=== PATIENT | female | born 1965 | race Caucasian/White ===

== ENCOUNTER 2017-12-26 18:30 | Emergency (ER) | payer OTHER ==
[~2017-12-26] VITALS: Ht 157.5 cm; Wt 59.0 kg
[~2017-12-26 18:30] MED LIST: ALBU90OI INH; ALBU90OI6 INH; ALPR.25; ALPR.5 PO; AMIT10 PO; AMIT25 PO; AMIT50 PO; ASPI81CH PO; Abilify2 MG; Aspirin EC81 MG PO; BUDE10.22 INH; CHOL10002 PO; CITA20 PO; CLON.1 PO; Clonidine HCl0.2 MG PO; DILT30 PO; FLUO10 PO; Flovent 220 Ora12 GM INH; HYDACE5 PO; HYDACE5325 PO; IBUHYD PO; LORA1 PO; LOSA25 PO; METCAR500 PO; MULTIVITAMIN W PO; Maxalt10 MG; Maxalt10 MG PO; NAPR500 PO; NIAC500 PO; Naprosyn500 MG PO; Omeprazole20 M1; Percocet 5-3251 EACH PO; Prilosec Otc20 MG; Prozac20 MG; Robaxin500 MG PO; TIZANIDINE HCL4 MG PO; TRAM50 PO; TRAZ100 PO; Ultram50 MG PO; VITAMIN D32000 UNIT PO; Voltaren100 GM TP
[2017-12-26] MEDS ORDERED: Percocet 5-3251 EACH PO (20:31)
[2017-12-26] MEDS ORDERED: FLUO10 PO (20:50)
== END 2017-12-26 20:50 | disposition home or self-care (01) ==
LOC: ER 18:30
DX: S61.412A Laceration without foreign body of left hand, initial encounter (principal); I10 Essential (primary) hypertension; F41.9 Anxiety disorder, unspecified; F32.9 Major depressive disorder, single episode, unspecified; F17.210 Nicotine dependence, cigarettes, uncomplicated; Z88.0 Allergy status to penicillin; Z88.5 Allergy status to narcotic agent; Z79.899 Other long term (current) drug therapy; W01.0XXA Fall on same level from slipping, tripping and stumbling without subsequent striking against object, initial encounter
CPT/HCPCS: 12004; 99282

== ENCOUNTER → 2019-03-29 | Outpatient (CLI) | payer OTHER ==
[2019-03-29 12:47] LABS: BASOPHILS ABSOLUTE AUTO 0.03 K/mm3 (0.00-0.23); BASOPHILS PERCENT AUTO 1 % (0-2); EOSINOPHILS ABSOLUTE AUTO 0.04 K/mm3 (0.00-0.68); EOSINOPHILS PERCENT AUTO 1 % (0-6); Hematocrit 40.7 % (33.0-51.0); Hemoglobin 13.4 g/dL (11.5-16.0); IMMATURE GRAN ABSOLUTE AUTO 0.02 K/mm3 (0.00-0.10); IMMATURE GRAN PERCENT AUTO 0 % (0-1); LYMPHOCYTES ABSOLUTE AUTO 1.49 K/mm3 (0.84-5.20); LYMPHOCYTES PERCENT AUTO 26 % (21-46); MONOCYTES ABSOLUTE AUTO 0.36 K/mm3 (0.16-1.47); MONOCYTES PERCENT AUTO 6 % (4-13); Mean Corpuscular HGB 30.5 pg (26.0-34.0); Mean Corpuscular HGB Conc 32.9 g/dL (31.5-36.5); Mean Corpuscular Volume 93 fL (80-100); Mean Platelet Volume 9.5 fL (9.1-12.4); NEUTROPHILS ABSOLUTE AUTO 3.75 K/mm3 (1.96-9.15); NEUTROPHILS PERCENT AUTO 66 % (41-73); Platelet Count 406 K/mm3 (150-400); RDW Coefficient Variation 13.4 % (11.7-14.2); RDW Standard Deviation 45.5 fL (35.1-46.3); Red Blood Cell Count 4.39 M/mm3 (3.80-5.20); White Blood Cell Count 5.69 K/mm3 (4.00-11.30)
[2019-03-29 12:56] LABS: Alanine Aminotransfer (ALT/SGP 12 U/L (12-78); Albumin/Globulin Ratio 0.9 (0.8-1.8); Alk Phos 127 U/L (40-126); Anion Gap 10 mmol/L (6-16); Aspartate Aminotrans (AST/SGOT 15 U/L (12-37); Bilirubin, Total 0.2 mg/dL (0.1-1.0); Blood Urea Nitrogen 8 mg/dL (8-24); Bun/Creatinine Ratio 9.5 (12.0-20.0); CO2, Blood 26 mmol/L (21-32); Chloride, Blood 102 mmol/L (98-108); Creatinine, Blood 0.84 mg/dL (0.40-1.00); Globulin, Blood 4.3 g/dL (2.2-4.0); Glomerular Filtration Rate >60 (60-); Glucose, Blood 92 mg/dL (70-99); Potassium, Blood 4.6 mmol/L (3.5-5.5); Sodium, Blood 138 mmol/L (136-145); Total Protein, Blood 8.3 g/dL (6.4-8.2)
== END | disposition home or self-care (01) ==
LOC: LAB SHORT 12:38 → LAB EV 12:38
PROVIDERS: Physician Assistant Medical
DX: K92.1 Melena (principal)
CPT/HCPCS: 80053; 85025

== ENCOUNTER 2020-02-19 07:58 | Day surgery (SDC) | payer OTHER ==
[~2020-02-19 07:58] MED LIST changes: +AMLO5 PO; +ATOR20 PO; +B-121000 MC7 PO; +FENO48 PO; +METO25ER; +METOPROLOL TA37.5 MG PO; -Maxalt10 MG; -Omeprazole20 M1; +Omeprazole20 M1 PO; -Prozac20 MG; +Prozac20 MG PO; +SYMBICORT 80-10.2 GM INH
--- NOTE | 2020-02-19 09:53 | NUR ---
DISCHARGE SUMMARY Patient up to Ambulate independently. Gait steady. Discharge instructions reviewed with patient. Patient verbalizes understanding. Copy given to patient to take home.IV DC'D.
== END 2020-02-19 22:55 | disposition home or self-care (01) ==
LOC: ORD 07:58 → CT 07:58 → ORD 08:30 → CT 09:00 → ORD 22:55
DX: I20.9 Angina pectoris, unspecified (principal); I12.9 Hypertensive chronic kidney disease with stage 1 through stage 4 chronic kidney disease, or unspecified chronic kidney disease; N18.9 Chronic kidney disease, unspecified; J43.9 Emphysema, unspecified; J98.11 Atelectasis; E78.5 Hyperlipidemia, unspecified; F17.210 Nicotine dependence, cigarettes, uncomplicated; F41.9 Anxiety disorder, unspecified; F32.9 Major depressive disorder, single episode, unspecified; Z79.899 Other long term (current) drug therapy; Z88.0 Allergy status to penicillin; Z88.5 Allergy status to narcotic agent; Z79.82 Long term (current) use of aspirin; R00.2 Palpitations; I70.1 Atherosclerosis of renal artery
CPT/HCPCS: 75574; Q9967

== ENCOUNTER → 2020-05-01 | Outpatient (CLI) | payer OTHER | END | disposition home or self-care (01) | LOC: LAB 17:08 → LAB SHORT 17:08 | DX: E55.9 Vitamin D deficiency, unspecified (principal); E04.2 Nontoxic multinodular goiter | CPT/HCPCS: 82306; 84443 ==

== ENCOUNTER → 2020-08-09 | Outpatient (CLI) | payer OTHER ==
[2020-08-09 13:09] LABS: BASOPHILS ABSOLUTE AUTO 0.03 K/mm3 (0.00-0.23); BASOPHILS PERCENT AUTO 0 % (0-2); EOSINOPHILS ABSOLUTE AUTO 0.07 K/mm3 (0.00-0.68); EOSINOPHILS PERCENT AUTO 1 % (0-6); Hematocrit 38.4 % (33.0-51.0); Hemoglobin 12.8 g/dL (11.5-16.0); IMMATURE GRAN ABSOLUTE AUTO 0.01 K/mm3 (0.00-0.10); IMMATURE GRAN PERCENT AUTO 0 % (0-1); LYMPHOCYTES ABSOLUTE AUTO 2.05 K/mm3 (0.84-5.20); LYMPHOCYTES PERCENT AUTO 30 % (21-46); MONOCYTES ABSOLUTE AUTO 0.38 K/mm3 (0.16-1.47); MONOCYTES PERCENT AUTO 6 % (4-13); Mean Corpuscular HGB 29.9 pg (26.0-34.0); Mean Corpuscular HGB Conc 33.3 g/dL (31.5-36.5); Mean Corpuscular Volume 90 fL (80-100); NEUTROPHILS ABSOLUTE AUTO 4.22 K/mm3 (1.96-9.15); NEUTROPHILS PERCENT AUTO 63 % (41-73); Platelet Count 304 K/mm3 (150-400); RDW Coefficient Variation 13.2 % (11.7-14.2); RDW Standard Deviation 43.2 fL (35.1-46.3); Red Blood Cell Count 4.28 M/mm3 (3.80-5.20); White Blood Cell Count 6.76 K/mm3 (4.00-11.30)
[2020-08-09 13:18] LABS: Albumin, Blood 4.3 g/dL (3.4-5.0); Albumin/Globulin Ratio 1.1 (0.8-1.8); Bilirubin, Total 0.3 mg/dL (0.1-1.0); Bun/Creatinine Ratio 6.9 (12.0-20.0); Calcium, Blood 9.4 mg/dL (8.5-10.1); Creatinine, Blood 1.01 mg/dL (0.40-1.00); Globulin, Blood 3.9 g/dL (2.2-4.0); Potassium, Blood 4.4 mmol/L (3.5-5.5); Total Protein, Blood 8.2 g/dL (6.4-8.2)
== END | disposition home or self-care (01) ==
LOC: PLD 13:04 → LAB SHORT 13:04
PROVIDERS: Physician Assistant Surgical
DX: R11.2 Nausea with vomiting, unspecified (principal)
CPT/HCPCS: 80053; 85025

== ENCOUNTER 2020-08-29 21:15 | Emergency (ER) | payer OTHER ==
[~2020-08-29] VITALS: Ht 157.5 cm; Wt 68.0 kg
[2020-08-29 21:51] LABS: BASOPHILS ABSOLUTE AUTO 0.05 K/mm3 (0.00-0.23); BASOPHILS PERCENT AUTO 0 % (0-2); EOSINOPHILS ABSOLUTE AUTO 0.15 K/mm3 (0.00-0.68); EOSINOPHILS PERCENT AUTO 1 % (0-6); Hematocrit 40.5 % (33.0-51.0); Hemoglobin 13.6 g/dL (11.5-16.0); IMMATURE GRAN ABSOLUTE AUTO 0.04 K/mm3 (0.00-0.10); IMMATURE GRAN PERCENT AUTO 0 % (0-1); LYMPHOCYTES ABSOLUTE AUTO 3.16 K/mm3 (0.84-5.20); LYMPHOCYTES PERCENT AUTO 28 % (21-46); MONOCYTES ABSOLUTE AUTO 0.83 K/mm3 (0.16-1.47); MONOCYTES PERCENT AUTO 7 % (4-13); Mean Corpuscular HGB 30.8 pg (26.0-34.0); Mean Corpuscular HGB Conc 33.6 g/dL (31.5-36.5); Mean Corpuscular Volume 92 fL (80-100); NEUTROPHILS ABSOLUTE AUTO 7.08 K/mm3 (1.96-9.15); NEUTROPHILS PERCENT AUTO 63 % (41-73); RDW Coefficient Variation 13.4 % (11.7-14.2); RDW Standard Deviation 45.8 fL (35.1-46.3); Red Blood Cell Count 4.41 M/mm3 (3.80-5.20); White Blood Cell Count 11.31 K/mm3 (4.00-11.30)
[2020-08-29 22:03] LABS: Mean Platelet Volume 10.2 fL (9.1-12.4); Platelet Count 321 K/mm3 (150-400)
[2020-08-29 22:14] LABS: Albumin, Blood 4.3 g/dL (3.4-5.0); Bilirubin, Total 0.3 mg/dL (0.1-1.0); Bun/Creatinine Ratio 11.9 (12.0-20.0); Calcium, Blood 9.6 mg/dL (8.5-10.1); Creatinine, Blood 1.18 mg/dL (0.40-1.00); Globulin, Blood 4.4 g/dL (2.2-4.0); Total Protein, Blood 8.7 g/dL (6.4-8.2)
== END 2020-08-29 22:38 | disposition left against medical advice (07) ==
LOC: ER 21:15
PROVIDERS: Physician Assistant
DX: R19.5 Other fecal abnormalities (principal); R10.9 Unspecified abdominal pain; Z53.21 Procedure and treatment not carried out due to patient leaving prior to being seen by health care provider
CPT/HCPCS: 36415; 80053; 83690; 85025; 99284

== ENCOUNTER → 2020-12-09 | Outpatient (CLI) | payer OTHER ==
[2020-12-09 12:00] LABS: Protein, Urine Quantitative <5.0 mg/dL (0.0-11.9)
== END | disposition home or self-care (01) ==
LOC: LAB 09:41 → LAB SHORT 09:41 → OLS 09:41
PROVIDERS: Internal Medicine Nephrology
DX: N18.30 Chronic kidney disease, stage 3 unspecified (principal); R80.9 Proteinuria, unspecified
CPT/HCPCS: 81050; 82108; 82570; 84156

== ENCOUNTER → 2020-12-31 | Outpatient (CLI) | payer OTHER ==
[2021-01-05 15:07] LABS: COTININE <10.0 ng/mL (.); NICOTINE <10.0 ng/mL (.)
== END ==
LOC: LAB SHORT 17:51 → LAB 17:51
PROVIDERS: Radiology Diagnostic Radiology
DX: Z87.891 Personal history of nicotine dependence (principal); Z88.0 Allergy status to penicillin; Z88.5 Allergy status to narcotic agent
CPT/HCPCS: G0480

== ENCOUNTER 2021-03-18 08:21 | Day surgery (SDC) | payer OTHER ==
[~2021-03-18] VITALS: Ht 157.5 cm; Wt 66.0 kg
[~2021-03-18 08:21] MED LIST changes: +Robaxin750 MG PO
[2021-03-18] MEDS ORDERED: CLOP75 PO (10:32)
--- NOTE | 2021-03-18 11:25 | NUR ---
PT C/O NAUSEA, ORDER RECIEVED FROM DR. ROBBINS FOR ZOFRAN 4 MG IVP. WILL CONTINUE TO MONITOR. HOB RAISED 15 DEGREES, GROIN SITE REMAINS SOFT NON TENDER WITH NO BLEEDING ON RIGHT SIDE. CALL LIGHT WITHIN REACH.
--- NOTE | 2021-03-18 12:34 | NUR ---
PT SITTING UP IN BED, EATING LUNCH. R FEMORAL SITE REMAINS CLEAR. NO BLEEDING OR HEMATOMA NOTED. VSS. NADN.
--- NOTE | 2021-03-18 13:00 | NUR ---
PT AMBULATES TO RESTROOM AND BACK WITHOUT DIFF. DRESSES SELF. R FEM SITE REMAINS CLEAR. PT VERBALIZES UNDERSTANDING WRITTEN AND VERBAL ORDERS. PT IV DC'D. CATH INTACT. PRESSURE DSG IN PLACE. PT DC TO HOME VIA FRIEND BY MCKAYLA.
== END 2021-03-18 13:00 | disposition home or self-care (01) ==
LOC: MHTC 08:21
DX: I70.1 Atherosclerosis of renal artery (principal); I10 Essential (primary) hypertension
CPT/HCPCS: 36252; 37236; 75774; 76937; 99152; 99153; A9270; C1725; C1760; C1769; C1876; C1887; C1894; J1644; J2250; J2405; J3010; J7030; J7040; J7050; Q9967

== ENCOUNTER → 2024-05-22 | Outpatient (CLI) | payer OTHER ==
[~2024-05-22] MED LIST changes: +CLOP75 PO
== END ==
LOC: LAB SHORT 12:00 → LAB 12:00
DX: R30.0 Dysuria (principal)
CPT/HCPCS: 87077; 87086; 87186

== ENCOUNTER 2024-07-11 09:29 | Emergency (ER) | payer OTHER ==
[~2024-07-11] VITALS: Ht 157.5 cm; Wt 54.4 kg
[~2024-07-11 09:29] MED LIST changes: +ABILIFY MYCITE2 M2 PO; +BREYNA 80-4.510.3 GM INH; +CELEXA40 M1 PO; +Crestor40 MG PO; +Cyclobenzaprine5 MG PO; +DULO60 PO; +HYDHCL25 PO; +PRAV20 PO
[2024-07-11] MEDS ORDERED: NS 1,000 ML IV SCH (10:00)
[2024-07-11] MEDS ORDERED: Ondansetron HCl 2 MG / ML 2ML Vial IV ONE (10:00)
[2024-07-11 10:13] LABS: BASOPHILS ABSOLUTE AUTO 0.02 K/mm3 (0.00-0.23); BASOPHILS PERCENT AUTO 0 % (0-2); EOSINOPHILS ABSOLUTE AUTO 0.01 K/mm3 (0.00-0.68); EOSINOPHILS PERCENT AUTO 0 % (0-6); Hematocrit 43.5 % (33.0-51.0); IMMATURE GRAN ABSOLUTE AUTO 0.01 K/mm3 (0.00-0.10); IMMATURE GRAN PERCENT AUTO 0 % (0-1); LYMPHOCYTES ABSOLUTE AUTO 2.82 K/mm3 (0.84-5.20); LYMPHOCYTES PERCENT AUTO 44 % (21-46); MONOCYTES ABSOLUTE AUTO 0.69 K/mm3 (0.16-1.47); MONOCYTES PERCENT AUTO 11 % (4-13); Mean Corpuscular HGB 30.5 pg (26.0-34.0); Mean Corpuscular HGB Conc 34.5 g/dL (31.5-36.5); Mean Corpuscular Volume 88 fL (80-100); NEUTROPHILS ABSOLUTE AUTO 2.81 K/mm3 (1.96-9.15); NEUTROPHILS PERCENT AUTO 44 % (41-73); Platelet Count 171 K/mm3 (150-400); RDW Coefficient Variation 13.2 % (11.7-14.2); RDW Standard Deviation 42.7 fL (35.1-46.3); Red Blood Cell Count 4.92 M/mm3 (3.80-5.20); White Blood Cell Count 6.36 K/mm3 (4.00-11.30)
[2024-07-11 10:40] LABS: Bilirubin, Total 0.4 mg/dL (0.1-1.0); Bun/Creatinine Ratio 16.4 (12.0-20.0); Calcium, Blood 9.3 mg/dL (8.5-10.1); Creatinine, Blood 0.61 mg/dL (0.40-1.00); Globulin, Blood 4.2 g/dL (2.2-4.0); Total Protein, Blood 8.2 g/dL (6.4-8.2)
[2024-07-11 10:45] LABS: CORONAVIRUS COVID-19 AG Negative (NEGATIVE); INFLUENZA A AG Positive (NEGATIVE); INFLUENZA B AG Negative (NEGATIVE)
[2024-07-11] MEDS ORDERED: ONDA4ODT MM (10:52)
[2024-07-11] MEDS ORDERED: Acetaminophen 500 MG Tab PO ONE (10:55)
[2024-07-11 11:00] VITALS: BP 145/96
== END 2024-07-11 11:21 | disposition home or self-care (01) ==
LOC: ER 09:29
PROVIDERS: Student in an Organized Health Care Education/Training Program
DX: J10.1 Influenza due to other identified influenza virus with other respiratory manifestations (principal); E03.9 Hypothyroidism, unspecified; I10 Essential (primary) hypertension; I48.91 Unspecified atrial fibrillation; J44.9 Chronic obstructive pulmonary disease, unspecified; F17.210 Nicotine dependence, cigarettes, uncomplicated; Z88.0 Allergy status to penicillin; Z88.5 Allergy status to narcotic agent; Z79.01 Long term (current) use of anticoagulants; Z79.51 Long term (current) use of inhaled steroids; Z79.899 Other long term (current) drug therapy; Z59.89 Other problems related to housing and economic circumstances
CPT/HCPCS: 71046; 80053; 85025; 87428-QW; 96361; 96374; 99283-25; A9270; J2405; J7030